=== PATIENT | female | born 1980 | race African-American/Black ===

== ENCOUNTER → 2020-06-27 09:22 | Outpatient (CLI) | payer OTHER, SELFPAY ==
[2020-06-27 09:50] LABS: COVID19 -Nasal RAPID Negative (Negative)
== END ==
PROVIDERS: Referring Provider Surgery; Visit Provider Surgery
DX: Z01.812 Encounter for preprocedural laboratory examination (principal); Z20.822 Contact with and (suspected) exposure to COVID-19
CPT/HCPCS: 87635; C9803

== ENCOUNTER 2020-06-28 08:21 | Day surgery (SDC) | payer OTHER, SELFPAY ==
[2020-06-28] VITALS (18 sets, daily range): BP systolic 111–143; BP diastolic 60–91; PULSE 73–109; RESP 12–18; TEMP 36.1–37.1; O2SAT 97–100; BMI 25.4
--- NOTE | 2020-06-28 | PATH_ITS ---
[facility] Accession Number: [id number] . 01 Material submitted: . gallbladder - GALLBLADDER . 01 Diagnosis: Gallbladder, Cholecystectomy: Chronic cholecystitis and cholelithiasis. MRV 07/03/2020 1335 Local . 01 Electronically signed: . Fay Hua MD, Pathologist NPI- [id number] . 01 Gross description: . The specimen is received in formalin, labeled gallbladder and consists of an 8.0 x 3.0 x 2.5 cm focally disrupted gallbladder with a 0.2 cm in diameter cystic duct. The serosa is casanova-pink and smooth with focal fibrinous adhesions. Opening reveals green viscous bile with a 3.8 x 2.5 x 2.0 cm pink to casanova-green bosselated cholelith. The mucosa is casanova to casanova-green, trabeculated and focally denuded. The wall thickness measures up to 0.5 cm. Rafter Cutting [employer] Operator sections are submitted to include the en face cystic duct margin (blue) in cassette A1. ([id number]) /MRV 06/30/2020 1239 Local . 01 Pathologist provided ICD-10: K80.20 . 01 CPT . 294426 Performed at: [address] [facility], [place], [place] [id number] MD Samuel Reddy MD Phone: [phone]
[2020-06-28] MEDS: ACETAMINOPHEN 325 MG TABLET 975 MG PO (08:37)
[2020-06-28] MEDS: LACTATED RINGERS 1,000 ML 42 ML IV ×2 (09:00→11:47)
[2020-06-28] MEDS: Non-Formulary Medication (Indocyanine 25 MG) 25 EACH IV (09:06)
--- NOTE | 2020-06-28 09:15 | SUR.PREOP ---
Indocyanine green 25mg IVP given at 0906.
--- NOTE | 2020-06-28 11:01 | PM.HP.1 ---
History of Present Illness History of Present Illness Date Patient Seen: 06/28/20 Time Patient Seen: 11:01 Chief complaint: [facility] [place] Narrative: This is a 40-year-old woman who has had several months of intermittent right upper quadrant pain which comes and goes, and usually passes quickly. She had an episode recently where she went into the emergency room, because her pain became severe and unrelenting. In the ER she was found to have a 3 cm gallstone, no elevated white count, and normal liver tests. She had no signs of cholecystitis on her ultrasound, and her pain improved with pain medication. She continues to have episodes of right upper quadrant pain. She denies any associated fevers or jaundice. She has history of Graves disease, and thyroid ablation, and is now on Synthroid. She has chronic constipation, and has had 2 colonoscopies before to evaluate her. She was told to colonoscopies were essentially normal. She occasionally takes MiraLax for her constipation. It sometimes takes her several days to have a bowel movement. She reports that she has had hemorrhoids and anal fissures in the past due to her constipation. She has started taking metamucil since our last visit and says it has helped some. No other changes since I saw her in May. ROS: Positive for constipation. Thirteen system review is otherwise negative other than as mentioned below and in HPI. PE: GENERAL: Well groomed and cooperative. Appears stated age. Answers questions promptly and appropriately. Vital signs noted. HENT: Normocephalic, atraumatic. Hearing intact. EYES: Conjunctiva pink, sclera white, no periorbital swelling. CARDIOVASCULAR: Regular rate. No pedal edema. RESPIRATORY: Non-tachypneic, breathing comfortably on room air. GASTROINTESTINAL: Abdomen soft and non-distended GENITALURINARY: No flank tenderness. MUSCULOSKELETAL: Equal tone and mass bilaterally. SKIN: Warm, dry, soft, appropriate color for ethnicity. No other lesions, rashes, or wounds. NEURO: Alert and Oriented X 3. No gross sensory deficits, or cognitive issues. PSYCH: Appropriate affect and mood. Patient History Medical History Constipation Gallstones Graves' disease Wears glasses Family & Social History Family History Mother Hypertension Grandmother Diabetes mellitus Father Diabetes mellitus Social History: household members spouse,children Tobacco & Substance use: Smoking Status Never smoker alcohol intake never Substance Use Type does not use Meds Home Medications and Allergies Home Medications Medication Instructions Recorded Confirmed Type hydrocodone 5 mg-acetaminophen 325 1 tab PO BID PRN 05/18/20 06/28/20 History mg tablet levothyroxine 88 mcg tablet 88 mcg PO DAILY 05/18/20 06/28/20 History naproxen 500 mg tablet 500 mg PO BID PRN 05/18/20 06/28/20 History Vitamin C 06/26/20 History cholecalciferol (vitamin D3) 100 mcg PO DAILY 06/26/20 06/28/20 History [Vitamin D3] multivitamin 2 tab PO DAILY 06/26/20 06/28/20 History Allergies Allergy/AdvReac Type Severity Reaction Status Date / Time No Known Drug Allergies Allergy Unverified 05/18/20 14:06 Exam Vital Signs (past 8 hours): - 06/28/20 08:59 Temperature 98.3 F Pulse Rate 73 Respiratory Rate 12 Blood Pressure 129/86 Pulse Oximetry 100 Oxygen Delivery Method Room Air Assessment & Plan Assessment and plan (1) Symptomatic cholelithiasis: Status: Acute (2) Hypothyroid: Qualifiers: Hypothyroidism type: postablative Qualified Code(s): E89.0 - Postprocedural hypothyroidism Status: Acute (3) Chronic constipation: Status: Acute Assessment & Plan narrative: Risks and benefits of laparoscopic possible open cholecystectomy were discussed with the patient including risk of bleeding, infection, damage to nearby structures, need for additional procedures, bile leak, bile duct injury, need to transfer for tertiary care, need for open surgery, need for prolonged hospitalization, need for drain placement. The patient desires to proceed with surgery Plan: Proceed with laparoscopic possible open cholecystectomy COVID-19 COVID-19 status: Negative Result date/Date tested (Pos, Neg/Pending): 06/27/20 Time Spent With Patient Time with patient: 15-24 minutes Quality VTE Deep Vein Thrombosis/Pulmonary Embolism Present on Admission: No
[2020-06-28] MEDS: PIPERACILLIN-TAZO 3.375 GM/50 ML FROZ.PIGGY IV (11:16)
[2020-06-28] MEDS: BUPIVACAINE 0.25% W/ EPI (PF) 10 ML VIAL 30 ML INJ (12:04)
--- NOTE | 2020-06-28 12:17 | SUR.OPER ---
Supine on padded OR bed, head on pillow, arms secured on padded arm boards at <90 degrees abduction, legs uncrossed, safety belt at thigh, tape over blanket over lower legs.
--- NOTE | 2020-06-28 12:59 | P.OP_ITS ---
Operative Date/Time/Diagnoses Date of procedure: 06/28/20 Time of procedure: 12:59 Pre-op diagnosis: Symptomatic cholelithiasis Post-op diagnosis: other (Symptomatic cholelithiasis, chronic cholecystitis) Procedure & Clinicians Procedure: Laparoscopic cholecystectomy Indocyanine green cholangiography Prolonged lysis of adhesions Coding [id number] Same procedure as scheduled: Yes Indications: Symptomatic cholelithiasis Surgeon: Rubina Fay Click Yes if Unassisted: Yes Anesthesia Type: General Operative Notes Findings: Tense distended gall bladder, had to drain it with lap needle; thickened adhesions of stomach and omentum to gall bladder, two areas where gall bladder was thinned out and darkened, appearing to be sites of prior perforation or near perforation; very thickened gall bladder with dense adhesions and rind; large gall stones; good critical view; good view with indocyanine of cystic duct Specimen(s): other (Gall bladder and contents) Estimated Blood Loss (mL): 5 Blood products transfused: none Procedure in detail: The patient was brought into the operating room and placed supine on the OR table. Sequential compression devices were placed on both legs and turned on. Appropriate perioperative antibiotics were given prior to the start of surgery. General anesthesia was induced the patient was intubated. The abdomen was prepped and draped in sterile fashion. Surgical time-out was conducted. Local anesthetic was injected under the skin just superior to the umbilicus and a 5 mm vertical incision was made at this site. The umbilical stalk was grasped with a Kev and elevated. A Veress needle was passed through the fascia into proper position. The position was tested with a saline drop test which was appropriate for intra-abdominal Veress needle placement. The abdomen was then insufflated in the usual fashion. Once insufflated to 15 m m Hg the Veress needle was removed and a 5 mm optical trocar was placed under direct vision using a 5 mm 30 degree scope. Once the camera was inside the abdomen I took a look around. There was no injury from port placement. Two additional ports were placed in a similar fashion in the right upper quadrant and a 10 mm port was placed in the epigastrium. The gall bladder was very tense and thickened. It was then drained with a laparoscopic needle and syringe. 80mL of thick bilious fluid was drained from the gall bladder fundus. Through the 2 lateral ports the gallbladder was then grasped and elevated. Two thinned and darkened areas on the fundus were seen, one was covered with dense omental adhesions. The stomach was pulled up into the adhesions. This appeared like an area of prior perforation that was sealed by omentum. Prolonged tedious dissection was required to free the stomach and omental adhesions without damaging the stomach or gall bladder. This took an additional 30 minutes of operative time. Once these adhesions were removed, the infundibulum was retracted laterally to the patient's right. This exposed the gallbladder hilum and allowed for dissection of the cystic duct and cystic artery. The gall bladder hilum was socked in with thickened chronic inflammatory tissue. This required tedious careful dissection to avoid injury to the bile ducts. This added an additional 25 minutes to the operation. Indocyanine green cholangiography was used to assist in identifying the cystic duct. We were able to achieve a good critical view with indocyanine green. Once the cystic duct and artery were completely dissected out, I was able to see liver behind and between both structures without any other structures in the way, giving us the critical view of safety. At this point I triply clipped both structures on the patient's side and put a single clip on the gallbladder side of both the cystic duct and artery. Both structures were then divided with laparoscopic [place]. Following this the gallbladder was gradually dissected free from the liver. Again the gall bladder surface was very thickened and plasticised without clear planes. Prolonged tedious dissected was required to remove the gall bladder safely. A modifier 22 will be included in the coding for this case due to increased risk due to advanced patient disease, increased level of difficulty requiring increased operative care and skill, as well as double the typical operative time to complete the operation safely. Once the gallbladder was entirely freed, it was placed inside an Endo-Catch bag and removed through the epigastric port site. I did have to enlarge the fascial opening at the the epigastric site in order to get the gallbladder out due to very large gall stones. Once the gall bladder was out and passed off to the back table I then took another look inside the abdomen. I suctioned clean any remaining blood or fluid on the lateral side of the liver and in the subhepatic space. There was no active bleeding or leaking of bile from the gallbladder fossa or from the clipped stumps of the cystic duct and artery. At this point the epigastric port site was closed using Parth Madi suture passer through the fascia. Then the insufflation was removed from the abdomen and the epigastric port site was closed with 3-0 Vicryl in the subcutaneous layers, and 4-0 Monocryl in the skin. The remaining port sites were closed with 4-0 Monocryl in the skin. Each port site was sealed with Dermabond. Local anesthetic was given at each of the port sites and in the fascia. This concluded the procedure. At this point the needle sponge and instrument counts were correct. The gallbladder was passed off the table for pathology. Patient was awakened from anesthesia and extubated. She was transferred to the postanesthesia care unit in stable condition. Complications: none Post-operative Condition: stable Disposition: PACU
[2020-06-28] MEDS: hydrOXYzine pamoate 25 MG CAPSULE PO (14:13)
[2020-06-28] MEDS: OXYCODONE IR 5 MG TABLET PO (14:13)
--- NOTE | 2020-06-28 15:33 | SUR.PHASEII ---
Pt given juice and applesauce. awaiting her mom to come pick her up, assisted pt to dress, glue intact to abdomen. No nausea states pain is tolerable.
--- NOTE | 2020-06-28 16:34 | SUR.PHASEII ---
Late entry: MOm called when she arrived, pt left unit in stable condition.
== END 2020-06-28 15:45 | disposition home or self-care (01) ==
PROVIDERS: Referring Provider Surgery; Visit Provider Surgery
PROC: 0FT44ZZ Resection of Gallbladder, Percutaneous Endoscopic Approach (ICD-10-PCS; CPT 47562; principal; 2020-06-28 10:00)
DX: K80.10 Calculus of gallbladder with chronic cholecystitis without obstruction (principal); K59.09 Other constipation; E89.0 Postprocedural hypothyroidism; K66.0 Peritoneal adhesions (postprocedural) (postinfection)
CPT/HCPCS: 47563; J0330; J1100; J1885; J2250; J2405; J2543; J2704; J3010

== ENCOUNTER 2022-09-06 07:13 | Day surgery (SDC) | payer OTHER, SELFPAY ==
--- NOTE | 2022-09-06 | PATH_ITS ---
[facility] Accession Number: [id number] No. of containers..07 Tissue . 01 Material submitted: . PART A: rectum - RECTAL BIOPSIES PART B: colon - DESCENDING COLON BIOPSIES PART C: colon - CECAL BIOPSIES PART D: colon - ASCENDING COLON BIOPSIES PART E: colon - TRANSVERSE COLON BIOPSIES PART F: colon - DISTAL DESCENDING COLON BIOPSIES; 80 CM PART G: colon - SIGMOID COLON BIOPSIES . 01 Diagnosis: A. Rectum, Biopsy: Colonic mucosa with nonspecific subepithelial hemorrhage and congestion. No evidence of colitis. . B. Descending Colon, Biopsy: Colonic mucosa with nonspecific subepithelial hemorrhage and congestion. No evidence of colitis. . C. Cecum, Biopsy: Colonic mucosa with no diagnostic abnormality. Negative for active, chronic, and microscopic colitis. Negative for dysplasia and malignancy. . D. Ascending Colon, Biopsy: Colonic mucosa with no diagnostic abnormality. Negative for active, chronic, and microscopic colitis. Negative for dysplasia and malignancy. . E. Transverse Colon, Biopsy: Colonic mucosa with no diagnostic abnormality. Negative for active, chronic, and microscopic colitis. Negative for dysplasia and malignancy. . F. Distal Descending Colon At 80 cm, Biopsy: Colonic mucosa with nonspecific subepithelial hemorrhage and congestion. No evidence of colitis. . G. Sigmoid Colon, Biopsy: Colonic mucosa with nonspecific subepithelial hemorrhage and congestion. No evidence of colitis. [facility] 09/10/2022 1246 Local . 01 Comment: A, B, F, and G: While the histologic features are nonspecific, bowel preparation artifact is a consideration. . 01 Electronically signed: . Fay Hua MD, Pathologist NPI- [id number] . 01 Gross description: . Part A: RECTAL BIOPSIES: Received in formalin are 4 fragment(s) of casanova, soft tissue measuring 0.1 x 0.1 x 0.1 cm to 0.3 x 0.3 x 0.2 cm submitted entirely in 1 cassette(s) Part B: DESCENDING COLON BIOPSIES: Received in formalin are multiple fragment(s) of casanova, soft tissue measuring 0.1 x 0.1 x 0.1 cm to 0.3 x 0.2 x 0.2 cm submitted entirely in 1 cassette(s) Part C: CECAL BIOPSIES: Received in formalin are 3 fragment(s) of casanova, soft tissue measuring 0.1 x 0.1 x 0.1 cm to 0.2 x 0.2 x 0.2 cm submitted entirely in 1 cassette(s) Part D: ASCENDING COLON BIOPSIES: Received in formalin is 2 fragment(s) of casanova, soft tissue measuring 0.1 x 0.1 x 0.1 cm to 0.3 x 0.2 x 0.2 cm submitted entirely in 1 cassette(s) Part E: TRANSVERSE COLON BIOPSIES: Received in formalin are 2 fragment(s) of casanova, soft tissue measuring 0.1 x 0.1 x 0.1 cm to 0.4 x 0.2 x 0.2 cm submitted entirely in 1 cassette(s) Part F: DISTAL DESCENDING COLON BIOPSIES; 80 CM: Received in formalin are 2 fragment(s) of casanova, soft tissue measuring 0.1 x 0.1 x 0.1 cm to 0.2 x 0.2 x 0.1 cm submitted entirely in 1 cassette(s) Part G: SIGMOID COLON BIOPSIES: Received in formalin are multiple fragment(s) of casanova, soft tissue measuring 0.1 x 0.1 x 0.1 cm to 0.3 x 0.3 x 0.2 cm submitted entirely in 1 cassette(s) /[facility] 09/09/2022 2343 Local . 01 Pathologist provided ICD-10: R85.7, K92.1 . 01 CPT . 654029, 555743, 644478, 325382, 456357, 171339, 069236 Specimen Comment: A courtesy copy of this report has been sent to [facility] Performed at: 01 [facility] [address] [place] [address] [address], [place], [place] [id number] MD Samuel Reddy MD Phone: [phone]
[2022-09-06 07:47] VITALS: BMI 27.4
--- NOTE | 2022-09-06 07:47 | P.HP_ITS ---
History of Present Illness History of Present Illness Chief complaint: [facility] [place] [place] Narrative: Patient seen in office 08/02/2022. Presenting for chronic constipation and having some bleeding and strange discharge from her rectum. Cousin with ulcerative colitis she has never had a diagnosis. She presents for colonoscopy today. No changes in her health since seen in office. [facility] Medical History (Updated 09/06/22 @ 07:44 by Alana De Paz RN) Constipation Gallstones Graves' disease Symptomatic cholelithiasis Vertigo Wears glasses Family History Mother Hypertension Grandmother Diabetes mellitus Father Diabetes mellitus Social History marital status: household members: spouse and children occupational status: employed Smoking Status: Never smoker alcohol intake: never substance use type: does not use Meds Home Medications and Allergies Home Medications Medication Instructions Recorded Confirmed Type levothyroxine 88 mcg tablet 88 mcg PO DAILY 05/18/20 09/06/22 History (Synthroid) multivitamin 2 tab PO DAILY 06/26/20 09/06/22 History norethindrone 1.5 mg-ethinyl 1 tab PO DAILY 09/06/22 09/06/22 History estradiol 30 mcg(21)/iron 75 mg(7) tablet (Microgestin Fe 1.5/30 (28)) polyethylene glycol 3350 17 17 g PO DAILY PRN Constipation 09/06/22 09/06/22 Hi story gram/dose oral powder Allergies Allergy/AdvReac Type Severity Reaction Status Date / Time No Known Drug Allergies Allergy Verified 09/06/22 07:45 Exam Const General: cooperative, healthy appearing and comfortable Eyes General: appearance normal, both eyes and all related structures Resp Effort & Inspection: normal respiratory effort and able to speak in complete sentences GI Palpation: soft and No tender Assessment & Plan Assessment and plan (1) Chronic constipation: Status: Acute (2) Melena: Status: Acute Assessment & Plan narrative: I discussed the risks benefits and alternatives including but not limited to perforation of the colon and an incomplete exam she fully understands these risks and would like to proceed.
[2022-09-06] MEDS: LACTATED RINGERS 1,000 ML 42 ML IV (07:53)
[2022-09-06 08:07] VITALS: BP 125/88; PULSE 90; RESP 16; TEMP 36.2; O2SAT 100
[2022-09-06 09:40] VITALS: BP 116/79; PULSE 84; RESP 24; TEMP 35.9; O2SAT 100
[2022-09-06 09:45] VITALS: BP 118/79; PULSE 81; RESP 14; O2SAT 100
[2022-09-06 09:49] VITALS: BP 120/79; PULSE 82; RESP 16; O2SAT 100
[2022-09-06 10:09] VITALS: BP 128/80; PULSE 69; RESP 14; TEMP 36.4; O2SAT 100
--- NOTE | 2022-09-06 19:39 | P.OP.COLON_ITS ---
Operative Date/Time/Diagnoses Date of procedure: 09/06/22 Pre-op diagnosis: Bleeding and mucus discharge per rectum Post-op diagnosis: same Procedure & Clinicians Study performed: Colonoscopy and biopsy Same procedure as scheduled: Yes Surgeon: Amirah Pearce Procedure Notes Procedure in detail: Patient was taken to the endoscopy suite and placed in a left lateral decubitus position. Time-out was performed. Conscious sedation was induced and monitored by an anesthesiologist. A digital rectal exam was performed and there were some anal skin tags appreciated but no masses or strictures on digital rectal exam. Colonoscope was introduced into the anal canal and advanced through to the cecum. In the rectum and the lower sigmoid there was perhaps some irritation of the colonic mucosa. Photographs were obtained. The appendiceal orifice was photographed as well and the scope was then withdrawn over the course of 21 minutes. Several biopsies were obtained. Rectal biopsies, descending colon biopsies, cecal biopsies, ascending colon biopsies, transverse colon biopsies, distal descending colon biopsies at 80 cm and sigmoid biopsies. The prep was good [place] bowel prep 2. No polyps were seen. Patient tolerated the procedure well and went in good condition to the postoperative care unit Specimen(s): other (1. Rectal biopsies 2. Descending colon biopsies 3. Cecal biopsies 4. Ascending colon biopsies 5. Transverse colon biopsies 6. Descending colon biopsies 7. Sigmoid biopsy ) Complications: none Post-procedure Plan for aftercare: Will follow up the pathology report in hopes to find an etiology for the patient's symptoms.
== END 2022-09-06 10:23 | disposition home or self-care (01) ==
PROVIDERS: PCP Nurse Practitioner Family; Referring Provider Surgery; Visit Provider Surgery
PROC: 0DJD8ZZ Inspection of Lower Intestinal Tract, Via Natural or Artificial Opening Endoscopic (ICD-10-PCS; CPT 45378; principal; 2022-09-06 08:30)
DX: K62.5 Hemorrhage of anus and rectum (principal); K59.00 Constipation, unspecified
CPT/HCPCS: 45380; J2704